=== PATIENT | female | born 1985 | race Two or more races ===

== ENCOUNTER 2023-12-30 21:46 | Emergency (ER) | payer MEDICAID, OTHER ==
[~2023-12-30] VITALS: Ht 170.2 cm; Wt 90.9 kg
[2023-12-30 22:05] VITALS: BP 111/78; PULSE 68; RESP 16; O2SAT 99
== END 2023-12-31 01:42 | disposition left against medical advice (07) ==
LOC: ER 21:46 → EDBD 21:46 → ER 12-31 01:42
DX: F41.9 Anxiety disorder, unspecified (principal); R42 Dizziness and giddiness; R07.9 Chest pain, unspecified; Z53.21 Procedure and treatment not carried out due to patient leaving prior to being seen by health care provider
CPT/HCPCS: 93005